=== PATIENT | female | born 1965 | race Caucasian/White ===

== ENCOUNTER 2021-08-12 17:16 | Emergency (ER) | payer SELFPAY ==
[~2021-08-12] VITALS: Ht 160 cm; Wt 70.5 kg
[2021-08-12 18:21] LABS: COLLECTION METHOD CLEAN CATCH
[2021-08-12 18:24] LABS: BASO # 0.1 K/mm3 (0.0-0.2); BASO % 0.9 % (0.0-2.0); EOS # 0.2 K/mm3 (0.0-0.7); EOS % 2.7 % (0.0-4.0); GRAN # 3.9 K/mm3 (1.4-6.5); GRAN % 55.3 % (42.2-75.2); LYMPH % 28.5 % (20.0-51.0); MEAN CELL VOLUME 79 fl (80.0-100.0); MEAN CORPUSCULAR HEMOGLOBIN 23 pg (27-31); MEAN CORPUSCULAR HGB CONC 30 g/dl (33.0-37.0); MONO # 0.9 K/mm3 (0.1-0.6); MONO % 12.5 % (1.7-9.3); PLATELET COUNT 505 K/mm3 (130-400); RED BLOOD COUNT 4.28 M/mm3 (4.10-5.30); REDCELL DISTRIBUTION WIDTH-CV 17.7 % (11.5-14.5)
[2021-08-12 18:26] LABS: HEMATOCRIT 33.8 % (37.0-47.0)
[2021-08-12 18:30] LABS: PH 6 (5-8); SQUAMOUS EPITHELIAL 0-2 /hpf (0-10); URINE APPEARANCE Clear (CLEAR/HAZY); URINE BACTERIA None Seen /hpf (NONE SEEN); URINE BILIRUBIN Negative (NEGATIVE); URINE BLOOD Negative (NEGATIVE); URINE COLOR Straw (YELLOW); URINE GLUCOSE Negative (NEGATIVE); URINE KETONE Negative (NEGATIVE); URINE LEUKOCYTE ESTERASE Negative (NEGATIVE); URINE NITRATE Negative (NEGATIVE); URINE PROTEIN(semi-quant) Negative (NEGATIVE); URINE RBC 0-2 /hpf (0-2); URINE UROBILINOGEN Negative (NEGATIVE)
[2021-08-12 19:25] LABS: ALBUMIN 4.2 gm/dL (3.5-5.0); BILIRUBIN,TOTAL 0.2 mg/dL (0.2-1.2); CREATININE, serum 0.98 mg/dL (0.57-1.11)
[2021-08-12] MEDS ORDERED: COZAAR 50MG50 MG/TAB PO (19:51)
[2021-08-12] MEDS ORDERED: ZOFRAN 4MG T4 MG/TAB PO (19:51)
[2021-08-12 20:30] VITALS: BP 182/110; PULSE 80; TEMP 97.8
== END 2021-08-12 20:30 | disposition home or self-care (01) ==
LOC: COL.ER 17:16
PROVIDERS: Nurse Practitioner Primary Care
DX: A08.4 Viral intestinal infection, unspecified (principal); I10 Essential (primary) hypertension; Z79.899 Other long term (current) drug therapy
CPT/HCPCS: J2405; J7030